=== PATIENT | female | born 1955 | race Caucasian/White ===

== ENCOUNTER 2024-05-28 07:31 | Inpatient (IN) ==
--- NOTE | 2024-04-30 14:00 | PAT Medication Instructions ---
Medication Instructions Date of Service April 30, 2024 Home Medications calcium carbonate 390 mg PO QPM cholecalciferol (vitamin D3) 125 mcg (5,000 unit) tablet 5,000 unit PO QPM duloxetine 60 mg capsule,delayed release 60 mg PO QPM metoprolol succinate 50 mg tablet,extended release 24 hr 50 mg PO QPM raloxifene 60 mg tablet (Evista) 60 mg PO QPM duloxetine 30 mg capsule,delayed release 30 mg PO QPM loratadine 10 mg tablet (Claritin) 10 mg PO DAILY PRN seasonal allergies levothyroxine 88 mcg tablet 88 mcg PO HS nitrofurantoin macrocrystal 100 mg capsule 100 mg PO BID UTI Continue as directed nitrofurantoin macrocrystal 100 mg capsule 100 mg PO BID UTI ASK your prescriber and surgeon raloxifene 60 mg tablet (Evista) 60 mg PO QPM DO NOT take the morning of surgery loratadine 10 mg tablet (Claritin) 10 mg PO DAILY PRN seasonal allergies Take evening before surgery calcium carbonate 390 mg PO QPM cholecalciferol (vitamin D3) 125 mcg (5,000 unit) tablet 5,000 unit PO QPM duloxetine 60 mg capsule,delayed release 60 mg PO QPM metoprolol succinate 50 mg tablet,extended release 24 hr 50 mg PO QPM duloxetine 30 mg capsule,delayed release 30 mg PO QPM loratadine 10 mg tablet (Claritin) 10 mg PO DAILY PRN seasonal allergies (if needed) levothyroxine 88 mcg tablet 88 mcg PO HS MORNING OF SURGERY: NOTHING TO EAT OR DRINK AFTER MIDNIGHT Other Notes If you have any questions please call us at [phone] or [phone] or [phone] or [phone]
--- NOTE | 2024-05-06 10:27 | Anesthesiology Consultation ---
Date of Service May 06, 2024 Assessment & Plan (1) Encounter for pre-operative examination: - Infectious disease screening: Per assessment on 05/06/24- No known recent infectious disease contacts or current infectious disease symptoms. - Patient acceptable risk for surgery pending surgeon-ordered PCP preop evaluation ([facility], appt 05/20). Chart Review Chart Review: Patient seen in Pre Admission Testing Teaching & Discussion Pre-Anesthesia Teaching/Discussion Notes: Instructed NPO after midnight before surgery,except medications with 15 cc of water. Medication instructions provided according to the PAT guidelines. History Surgery Operation Date: 05/28/24 09:35 Proposed Procedures p L5-S1 Decompression and Fusion, Spinal Cord Monitoring - Dinh Francois, Height/Weight Height: 5 ft Weight: 69.4 kg Allergies Allergy/AdvReac Type Severity Reaction Status Date / Time Sulfa (Sulfonamide Allergy Unknown Rash Verified 04/18/24 14:12 Antibiotics) Medications Home Medications Medication Instructions Recorded Confirmed Last Taken calcium carbonate 390 mg PO QPM 07/29/20 04/18/24 Unknown cholecalciferol (vitamin D3) 125 5,000 unit PO QPM 07/29/20 04/18/24 Unknown mcg (5,000 unit) tablet duloxetine 60 mg capsule,delayed 60 mg PO QPM 07/29/20 04/18/24 Unknown release metoprolol succinate 50 mg 50 mg PO QPM 07/29/20 04/18/24 Unknown tablet,extended release 24 hr raloxifene 60 mg tablet (Evista) 60 mg PO QPM 07/29/20 04/18/24 Unknown duloxetine 30 mg capsule,delayed 30 mg PO QPM 04/12/24 04/18/24 Unknown release loratadine 10 mg tablet (Claritin) 10 mg PO DAILY PRN seasonal 04/12/24 04/18/24 Unknown allergies levothyroxine 88 mcg tablet 88 mcg PO HS 04/18/24 04/18/24 Unknown nitrofurantoin macrocrystal 100 mg 100 mg PO BID UTI 04/18/24 04/18/24 Unknown capsule Past Medical History Medical History (Updated 05/06/24 @ 21:25 by Felicity Matute) Chronic pain Tailbone chronic pain - reason for duloxetine Glomerulonephritis Familial glomerulonephritis - has seen a tubing tester in the remote past No current issues Rob's thyroiditis Hx of recurrent urinary tract infection Hypertension Per records, patient denies Impingement of right shoulder Lumbar radiculopathy chronic - bilateral legs Lumbar spinal stenosis Osteopenia Tachycardia Reason for metoprolol Exercise / Class Metabolic Activity II 4-5 Yardwork/Stairs/Walk up hill Past Family History Family History Mother Osteoporosis Hypothyroidism Breast cancer COPD (chronic obstructive pulmonary disease) Hypertension Sister Diabetes Breast cancer Grandmother (Paternal) Colorectal cancer Brother Prostate cancer Myocardial infarction Father Dementia Other No family history of adverse response to anesthesia Denies family history of Ovarian cancer Past Surgical History Surgical History History of bilateral breast reduction surgery History of carpal tunnel surgery R/L (2017) History of section x2 History of colonoscopy History of fusion of cervical spine C5-C7 fusion - "Full ROM" History of tubal ligation 1983 PONV (postoperative nausea and vomiting) Previous back surgery Tail bone removal S/P lumbar microdiscectomy 2017 Status post dilation and curettage Past Anesthesia History No Hx of Anesthesia Complications and No Family Hx of Anesthesia Complications History of PONV History of PONV and Hx of Motion Sickness (" on rides") Social History Smoking Status: Never smoker Do You Dip or Chew Tobacco: No Hx Alcohol Use: No Hx Substance Use: No substance use type: does not use Review of Systems Patient denies chest pain, shortness of breath, dyspnea on exertion, fever, chills, cough, wheezing, palpitations. Physical Exam Vital Signs BP 161/92 P 91 TEMP 97.9 SP02 95%RA RESP 16 Physical Full cervical extension range of motion. Full TMJ range of motion. TMD 3 finger breaths Mallampati Score III Dentition: intact, + several crowns Lungs: clear throughout to auscultation Cardiac: regular rate and rhythm, no murmurs noted Spine: normal Carotid arteries: negative bruit Extremities: no LE edema Lab Results Anesthesia Preop Results Results Anesthesia Widget: WBC 5.16 K/ul (4.8-10.8) 05/06/24 Hgb 13.5 g/dl (12.0-16.0) 05/06/24 Hct 41.9 % (37.0-47.0) 05/06/24 Plt 265 K/uL (130-400) 05/06/24 Na 142 mmol/L (136-145) 05/06/24 K 4.1 mmol/L (3.5-5.1) 05/06/24 Cl 109 mmol/L (98-107) H 05/06/24 CO2 28 mmol/L (21-32) 05/06/24 BUN 16 mg/dl (6-23) 05/06/24 Creat 0.89 mg/dl (0.6-1.2) 05/06/24 Glucose Level 93 mg/dl (70-99(Fasting)) 05/06/24 PT 10.0 Seconds (9.0-12.0) 05/06/24 PTT 25 Seconds (21-31) 05/06/24 INR 0.9 (0.9-1.1) 05/06/24 TSH 8.692 uIu/ml (0.300-4.500) H 04/12/24 Free T4 0.88 ng/dl (0.61-1.60) 04/12/24 Blood Type O Positive 05/06/24 Antibody Screen NEGATIVE 05/06/24 Testing Laboratory Results UA (04/12/24): positive nitrite/blood/protein, negative leuk est Urine culture (04/12/24): probable skin tayla *Patient states she was treated with abx for several days based on UA findings but told by PCP to discontinue after urine culture resulted and was not indicative of infection. Patient currently asymptomatic as of PAT visit 05/06/24* Electrocardiogram Date: 05/06/24 NSR with sinus arrhythmia at 79bpm. PRWP, consider anterior [place] vs lead placement vs LVH. No significant change compared to 12/01/2012 per fibre technologist comparison. Chest X-Ray Date: 05/06/24 FINDINGS: Lung volumes are normal. Lungs are clear. There is no pneumothorax or pleural effusion. Cardiac size is normal. Mediastinal contours are normal. There is no evidence for pulmonary edema. Postoperative findings within the spine are incidentally noted. IMPRESSION: No acute cardiopulmonary findings.
[~2024-05-28 07:31] MED LIST: CeleBREX 200 MG CAP PO SCH
[2024-05-28] MEDS: VANCOMYCIN HCL 1,000 MG/270 ML BAG IV SCH (08:22)
[2024-05-28] MEDS: LR 15ML/HR IV SCH (08:22)
[2024-05-28] MEDS: LR 60ML/HR IV SCH (08:22)
[2024-05-28] MEDS: ACETAMINOPHEN 500 MG TAB PO SCH (08:23)
[2024-05-28] MEDS: GABAPENTIN 300 MG CAP PO SCH (08:23)
[2024-05-28] MEDS ORDERED: ONDANSETRON INJ 2 MG/ML 2 ML VIAL ONE (08:25)
[2024-05-28] MEDS ORDERED: DEXAMETHASONE SOD INJ 4 MG/ML VIAL ONE (08:25)
[2024-05-28] MEDS ORDERED: PROPOFOL IV EMULSION 10 MG/ML 20 ML VIAL IV ONE (08:25)
[2024-05-28] MEDS ORDERED: LIDOCAINE 2% 2 ML VIAL/AMP(20MG/ML) INFIL ONE (08:25)
[2024-05-28] MEDS ORDERED: MIDAZOLAM HCL 1 MG/ML 2ML VIAL ONE (08:25)
[2024-05-28] MEDS ORDERED: fentaNYL citrate PF 100 MCG/2 ML VIAL ONE (08:25)
[2024-05-28] MEDS ORDERED: ROCURONIUM BROMIDE 10 MG/ML 5 ML VIAL IV ONE ×2 (08:25→10:01)
--- NOTE | 2024-05-28 09:07 | History & Physical Bridge Note ---
Date of Service May 28, 2024 History & Physical Bridge Note I have examined the patient, reviewed the History & Physical and in the interval since the performance of the History & Physical I have noted the following changes of clinical significance: no changes noted
--- NOTE | 2024-05-28 09:08 | History & Physical Report ---
Date of Service May 28, 2024 Assessment & Plan (1) Lumbosacral spondylosis with radiculopathy: History of Present Illness Chief Complaint: Back and bilateral leg pain Primary Care Provider: Norm Whitlock DO This is a 68-year-old female who presents chronic persistent back and bilateral leg pain after failing course of nonoperative care is here for surgical in [facility]. Allergies Allergy/AdvReac Type Severity Reaction Status Date / Time Sulfa (Sulfonamide Allergy Unknown Rash Verified 05/28/24 08:15 Antibiotics) Home Medications Medication Instructions Recorded Confirmed Type calcium carbonate 390 mg PO QPM 07/29/20 05/28/24 History cholecalciferol (vitamin D3) 125 5,000 unit PO QPM 07/29/20 05/28/24 History mcg (5,000 unit) tablet duloxetine 60 mg capsule,delayed 60 mg PO QPM 07/29/20 05/28/24 History release raloxifene 60 mg tablet (Evista) 60 mg PO QPM 07/29/20 05/28/24 History duloxetine 30 mg capsule,delayed 30 mg PO QPM 04/12/24 05/28/24 History release loratadine 10 mg tablet (Claritin) 10 mg PO DAILY PRN seasonal 04/12/24 05/28/24 History allergies levothyroxine 88 mcg tablet 88 mcg PO HS 04/18/24 05/28/24 History metoprolol succinate 50 mg 50 mg PO QPM #90 tabs 05/27/24 05/28/24 Rx tablet,extended release 24 hr albuterol sulfate 90 mcg/actuation 2 puff inhalation DIRECTED PRN 05/28/24 05/28/24 History aerosol inhaler (Ventolin HFA) Wheezing Past Med/Surg History Problem List (Updated 05/28/24 @ 09:07 by Dinh Francois DO) Lumbosacral spondylosis with radiculopathy Encounter for pre-operative examination Hematuria due to chronic cystitis Osteopenia HTN (hypertension) Lumbar radiculopathy Lumbar spinal stenosis Anxiety Hypothyroidism Medical History (Updated 05/28/24 @ 09:07 by Dinh Francois DO) Hx of recurrent urinary tract infection Glomerulonephritis Familial glomerulonephritis - has seen a car shagger in the remote past No current issues Chronic pain Tailbone chronic pain - reason for duloxetine Hypertension Per records, patient denies Tachycardia Reason for metoprolol Osteopenia Lumbar radiculopathy chronic - bilateral legs Lumbar spinal stenosis Impingement of right shoulder Rob's thyroiditis Surgical History PONV (postoperative nausea and vomiting) History of colonoscopy Previous back surgery S/P lumbar microdiscectomy History of carpal tunnel surgery History of fusion of cervical spine History of bilateral breast reduction surgery History of tubal ligation Status post dilation and curettage History of section Family History Mother Osteoporosis Hypothyroidism Breast cancer COPD (chronic obstructive pulmonary disease) Hypertension Sister Diabetes Breast cancer Grandmother (Paternal) Colorectal cancer Brother Prostate cancer Myocardial infarction Father Dementia Other No family history of adverse response to anesthesia Denies family history of Ovarian cancer Social History Smoking Status: Never smoker Second Hand Exposure: Yes (as a child); Do You Dip or Chew Tobacco: No; Tobacco Cessation Education Requested by Patient: No Hx Alcohol Use: No Hx Substance Use: No Preferred Language: Icelandic Communication Ability: Effective Commercial Lending Assistant Required: No Beliefs That Will Affect Care: None marital status: Current Living Situation: Spouse current occupational status: retired How many Children do You have: 2 Other Information That Helps Us Care for You: No Feels Safe at Home: Yes Safety Concerns: Feels Safe At This Time Childhood Exposure to Second-Hand Smoke: Yes Diet: regular caffeine: No Dental Care, Regularly: Yes Physical Activity Frequency: Does not Exercise Seatbelt Use: always Sunscreen Use: Yes Assistive Devices: None Physical Exam Physical Exam: Patient is alert and oriented Heart regular rhythm Lungs clear Results & Data Results & Data Vital Signs (Past 12 Hours) Vital Signs Temp Pulse Resp BP Pulse Ox O2 Del Method 05/28/24 08:10 36.9 C 96 H 20 159/99 H 97 Room Air
[2024-05-28] MEDS ORDERED: ePHEDrine sulfate 50 MG/ML AMP IV PRN (09:09)
[2024-05-28] MEDS ORDERED: ONDANSETRON INJ 2 MG/ML 2 ML VIAL IV PRN ×2 (09:09→13:30)
[2024-05-28] MEDS ORDERED: ATROPINE SULFATE 0.1 MG/ML 10ML SYR IV PRN (09:09)
[2024-05-28] MEDS ORDERED: DROPERIDOL 5 MG/2 ML VIAL IV PRN (09:10)
--- NOTE | 2024-05-28 09:33 | History & Physical Bridge Note ---
Date of Service May 28, 2024 History & Physical Bridge Note I have examined the patient, reviewed the History & Physical and in the interval since the performance of the History & Physical I have noted the following changes of clinical significance: no changes noted Lumbar decompression fusion L5-S1
[2024-05-28] MEDS ORDERED: PHENYLEPHRINE 100MCG/ML 5ML SYR ONE ×2 (10:01→10:41)
[2024-05-28] MEDS ORDERED: ePHEDrine sulfate 50 MG/5 ML SYR ONE (10:06)
[2024-05-28] MEDS ORDERED: VASOPRESSIN 20 UNIT/ML VIAL ONE (10:10)
[2024-05-28] MEDS ORDERED: SODIUM CHLORIDE 0.9% PF INJ 10 ML VIAL ONE (10:11)
[2024-05-28] MEDS: BUPIVACAINE/EPINEPHRINE 0.25% 1:200,000 30 ML VIAL ONE (10:13)
[2024-05-28] MEDS: ceFAZolin 330 MG/ML 1 GM VIAL ONE (10:14)
[2024-05-28] MEDS ORDERED: PHENYLEPHRINE HCL 10 MG/ML VIAL ONE (10:44)
[2024-05-28] MEDS ORDERED: SUGAMMADEX SODIUM 200 MG/2 ML VIAL IV ONE ×2 (11:05→11:11)
--- NOTE | 2024-05-28 11:05 | Operative Report ---
Post Operative Report Pre & Post Diagnosis Operation Date: 05/28/24 09:35 Pre-Op Diagnosis: Lumbosacral Spondylosis with Radiculopathy Post-Op Diagnosis: Lumbosacral Spondylosis with Radiculopathy I identified the patient and participated in the time-out.: Yes Procedure Operation Date: 05/28/24 09:35 Actual Procedures #1 revision decompression with bilateral medial facetectomies and foraminotomies L5-S1. #2 posterior spinal fusion L5-S1. #3 placement posterior instrumentation L5-S1. #4 interbody fusion L5-S1. #5 placement of Spira 11 x 26 mm x 2 at L5-S1. #6 placement locally harvested morselized autograft in the posterior gutters. #7 placement infuse collagen sponge, with Koros in the posterior lateral gutters and os design interbody space. #8 application of versa wrap over the exposed dura. Surgeon Dinh Francois, Child Care Cook Nelly Guevara Estimated Blood Loss 150 Findings Consistent with Post-Op Diagnosis Specimens None Indications This is a 68-year-old female who presents above-mentioned diagnosis of failed course of nonoperative care is here for surgical invention. Description of Procedure Patient was met with identified informed consent obtained. Patient was then taken to the operative suite underwent intubation placed in a prone position the Alvaro table atop the Valentín frame. All bony promises well-padded eyes inspected to ensure no external pressure placed upon them. This point lumbar spine was prepped and draped in normal sterile fashion. Sharp dissection with the assistance of Bovie cautery was formed down to and exposing the remaining lamina and transverse processes of L5 and the sacral ala bilaterally. From caudal to cephalad fashion revision complete laminectomy of L5 was performed including bilateral medial facetectomies and foraminotomies addressing severe subarticular and foraminal stenosis. Pedicle screws then placed in L5 and S1 levels bilaterally with assistance of fluoroscopy and appropriately sized vinay placed. By way of transforaminal approach on the right a discectomy of L5-S1 was performed endplates corrected to subcortical bleeding bone and a 11 x 26 mm spiral cage filled with os design bone graft tapped into position. Then proceeded to the left transforaminal region L5-S1. Again discectomy performed. Endplates guided to subcortical bleeding bone. A second 11 x 26 mm spiral cage filled with os design bone graft apposition. The rods were then locked in a final position bilaterally. The transverse processes of L5 and the sacral ala burred to subcortical bleeding bone. Infuse collagen sponge, with Koros and local autograft placed in the posterior lateral gutters. Versa wrap placed over the exposed dura. 15 round HANNAH drain inserted. Incision was then closed with 1 Vicryl fascia 2-0 Vicryl subcutaneously and 4 Monocryl for final skin closure. Steri-Strips sterile dressing placed. Patient waken taken to PACU in stable condition. Please note spinal cord monitoring was utilized at the procedure no changes noted. Nelly Guevara was present at the entire procedure and all the patient positioning complex portion of the surgery and final skin closure. I attest to the content of the Intraoperative Record and any orders documented therein. Any exceptions are noted below.
[2024-05-28] MEDS: FLOSEAL HEMOSTATIC MATRIX 10ML TOP ONE (11:07)
[2024-05-28] MEDS: fentaNYL citrate PF 100 MCG/2 ML VIAL IV PRN (11:30)
--- NOTE | 2024-05-28 11:48 | Fluoroscopy Report ---
FL lumbar spine 2-3V CLINICAL HISTORY: L5-S1 DECOMPRESSION AND FUSION WITH INTERBODY COMPARISON STUDY: Lumbar spine MRI January 19, 2024. FLUOROSCOPY TIME: 17 seconds. Ka,r: 12.67 mGy FLUOROSCOPIC IMAGES: 2 FINDINGS: Fluoroscopy was provided during L5-S1 decompression and fusion with discectomy. Hardware is intact. There are bilateral pedicle screws at the L5-S1 levels. IMPRESSION: Fluoroscopy provided during L5-S1 decompression and fusion. ACT 112: Negative or not required by law. Electronically signed by: Eldon Muse M.D. 05/28/2024 11:47 AM
[2024-05-28] MEDS: HYDROmorphone INJ 1 MG/ML SYRINGE IV PRN (12:18)
[2024-05-28] MEDS ORDERED: ALUMINUM/MAGNESIUM SUSP 30 ML UDC PO PRN (13:30)
[2024-05-28] MEDS ORDERED: FAMOTIDINE 20 MG TAB PO PRN (13:30)
[2024-05-28] MEDS ORDERED: PROMETHAZINE 12.5 MG/50.5 ML BAG IV PRN (13:30)
[2024-05-28] MEDS ORDERED: bisacodyL 10 MG SUPP PR PRN (13:30)
[2024-05-28] MEDS ORDERED: ALBUTEROL HFA 8 GM INHALER INH PRN (13:30)
[2024-05-28] MEDS ORDERED: DO NOT ADMINISTER FLU VACCINE PRN (13:30)
[2024-05-28] MEDS ORDERED: LORATADINE 10 MG TAB PO PRN (13:30)
[2024-05-28] MEDS ORDERED: LORazepam 2 MG/1 ML VIAL IV PRN (13:30)
[2024-05-28] MEDS ORDERED: DO NOT ADMINISTER PNEUMOCOCCAL VACCINE PRN (13:30)
[2024-05-28] MEDS ORDERED: NALOXONE HCL 0.4 MG/1 ML VIAL/CARP IV PRN (13:30)
[2024-05-28] MEDS ORDERED: MAGNESIUM HYDROXIDE SUSP 30 ML UDC PO PRN (13:30)
[2024-05-28] MEDS ORDERED: diphenhydrAMINE Capsule 25 MG CAP PO PRN (13:30)
[2024-05-28] MEDS ORDERED: LORazepam 0.5 MG TAB PO PRN (13:30)
[2024-05-28] MEDS ORDERED: SOD PHOSPHATE/SOD BIPHOSPHATE ENEMA 132 ML BTL PR PRN (13:30)
--- NOTE | 2024-05-28 13:54 | Anesthesiology Progress Note ---
Date of Service May 28, 2024 Anesthesia Post Procedure Vital Signs Vital Signs: Temp Pulse Pulse Resp BP Pulse Ox O2 Del Method 05/28/24 13:30 Nasal Cannula 05/28/24 13:30 36.5 C 108 H 18 101/66 98 Nasal Cannula 05/28/24 13:10 103 H 14 105/61 93 Nasal Cannula 05/28/24 13:00 101 H 14 95/56 L 93 Nasal Cannula 05/28/24 12:50 36.6 C 102 H 12 102/59 L 93 Nasal Cannula 05/28/24 12:40 100 H 12 116/63 96 Nasal Cannula 05/28/24 12:30 97 H 14 88/51 L 91 Nasal Cannula 05/28/24 12:20 103 H 20 91/54 L 94 Nasal Cannula 05/28/24 12:10 96 H 17 85/43 L 94 Nasal Cannula 05/28/24 12:00 97 H 15 102/57 L 92 Nasal Cannula 05/28/24 11:50 87 20 122/66 94 Oxymask 05/28/24 11:40 88 20 113/74 94 Oxymask 05/28/24 11:30 85 16 110/70 100 Oxymask 05/28/24 11:20 36.1 C L 85 16 122/72 98 Oxymask 05/28/24 08:10 36.9 C 96 H 20 159/99 H 97 Room Air O2 Flow Rate 05/28/24 13:30 2 05/28/24 13:30 2 05/28/24 13:10 2 05/28/24 13:00 2 05/28/24 12:50 2 05/28/24 12:40 2 05/28/24 12:30 2 05/28/24 12:20 2 05/28/24 12:10 2 05/28/24 12:00 2 05/28/24 11:50 2 05/28/24 11:40 4 05/28/24 11:30 4 05/28/24 11:20 6 05/28/24 08:10 Pain Intensity Back: Pain Intensity: 7 Transfer of Care Handoff Completed per policy Notes Mental Status: alert / awake / arousable and participated in evaluation Patient Amnestic to Procedure: Yes Nausea / Vomiting: adequately controlled Pain: adequately controlled Airway Patency, RR, SpO2: stable & adequate BP & HR: stable & adequate Hydration State: stable & adequate Anesthetic Complications: no major complications apparent and Pt Satisfied with anesthetic care
--- NOTE | 2024-05-28 14:30 | Hospitalist Consultation ---
Date of Consultation May 28, 2024 Assessment & Plan (1) Lumbosacral spondylosis with radiculopathy: s/p #1 revision decompression with bilateral medial facetectomies and foraminotomies L5-S1. #2 posterior spinal fusion L5-S1. #3 placement posterior instrumentation L5-S1. #4 interbody fusion L5-S1. #5 placement of Spira 11 x 26 mm x 2 at L5-S1. #6 placement locally harvested morselized autograft in the posterior gutters. #7 placement infuse collagen sponge, with Koros in the posterior lateral gutters and os design interbody space. #8 application of versa wrap over the exposed dura with Dr Francois on 05/28 EBL 150cc Post op pain management, bowel regimen, PT/OT/DVT proph per primary service Labs in AM (2) Hypothyroidism: Hx Rob's. Per PCP note, TSH slightly high but normal T4 and remains on levothyroxine 88mcg dialy rec repeat TFT in 4 wks following surgery/adjustment pending levels w/ PCP (3) Chronic pain: continues on Cymbalta 90mg dialy pain management for above per primary service (4) HTN (hypertension): hx HTN/tachycardia Continue metoprolol 50mg daily w/ hold parameters Plan Dispo: continued inpatient stay Thank you for allowing hospitalist service to participate in the care of Ms Eric. Hospitalist service will follow in AM. Please call with any questions/concerns. Supervising Physician Co-Signing Physician Notes 68-year-old female with past medical history of Rob's thyroiditis, hypertension, recurrent UTIs who presented for scheduled decompression/fusion L5-S1 on complicated with blood loss estimated 150 cc. Some postop hypoxia which has subsequently resolved by time of provider assessment suspect atelectatic. Mild tachycardia, has not yet received her scheduled beta-karine. Will continue this to prevent beta-karine withdrawal. Agree with assessment management as above History of Present Illness Reason for Consultation: medical management Requesting Physician: Dr Francois Attending Physician: Dinh Francois, History of Present Illness 68yo female with PMHx significant for Hashimotos, HTN/tachycardia, recurrent UTIs presented for decompression/fusion L5-S1 with Dr Francois. EBL 150cc Prior back surgery by Dr Byrne in the past in 2017. Patient evaluated in room 305, at bedside. Pain tolerable, would like something if available, nursing notified to provide. On 2L post-op but no SOB/CP reported. No nausea/vomiting, tolerating PO intake. HANNAH just emptied. No baby aspirin at baseline, on cymbalta for chronic pain not anxiety/depression. Discussed repeat TFT w/ PCP in next month. Questions/concerns addressed at this time Allergies Allergy/AdvReac Type Severity Reaction Status Date / Time Sulfa (Sulfonamide Allergy Unknown Rash Verified 05/28/24 08:15 Antibiotics) Home Medications Medication Instructions Recorded Confirmed Type calcium carbonate 390 mg PO QPM 07/29/20 05/28/24 History cholecalciferol (vitamin D3) 125 5,000 unit PO QPM 07/29/20 05/28/24 History mcg (5,000 unit) tablet duloxetine 60 mg capsule,delayed 60 mg PO QPM 07/29/20 05/28/24 History release raloxifene 60 mg tablet (Evista) 60 mg PO QPM 07/29/20 05/28/24 History duloxetine 30 mg capsule,delayed 30 mg PO QPM 04/12/24 05/28/24 History release loratadine 10 mg tablet (Claritin) 10 mg PO DAILY PRN seasonal 04/12/24 05/28/24 History allergies levothyroxine 88 mcg tablet 88 mcg PO HS 04/18/24 05/28/24 History metoprolol succinate 50 mg 50 mg PO QPM #90 tabs 05/27/24 05/28/24 Rx tablet,extended release 24 hr albuterol sulfate 90 mcg/actuation 2 puff inhalation DIRECTED PRN 05/28/24 05/28/24 History aerosol inhaler (Ventolin HFA) Wheezing oxycodone 5 mg tablet 5 mg PO Q6H PRN pain #30 tabs 05/28/24 Rx tramadol 50 mg tablet 50 mg PO Q6H PRN pain, moderate 05/28/24 Rx #30 tabs Patient History Medical History Hx of recurrent urinary tract infection Glomerulonephritis Familial glomerulonephritis - 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 the remote past No current issues Chronic pain Tailbone chronic pain - reason for duloxetine Hypertension Per records, patient denies Tachycardia Reason for metoprolol Osteopenia Lumbar radiculopathy chronic - bilateral legs Lumbar spinal stenosis Impingement of right shoulder Rob's thyroiditis Surgical History PONV (postoperative nausea and vomiting) History of colonoscopy Previous back surgery Tail bone removal S/P lumbar microdiscectomy 2016 History of carpal tunnel surgery R/L (2017) History of fusion of cervical spine C5-C7 fusion - "Full ROM" History of bilateral breast reduction surgery History of tubal ligation 1984 Status post dilation and curettage History of section x2 Family History Mother Osteoporosis Hypothyroidism Breast cancer COPD (chronic obstructive pulmonary disease) Hypertension Sister Diabetes Breast cancer Grandmother (Paternal) Colorectal cancer Brother Prostate cancer Myocardial infarction Father Dementia Other No family history of adverse response to anesthesia Denies family history of Ovarian cancer Social History Smoking Status: Never smoker Second Hand Exposure: Yes (as a child); Do You Dip or Chew Tobacco: No; Tobacco Cessation Education Requested by Patient: No Hx Alcohol Use: No Hx Substance Use: No Preferred Language: Kiswahili Communication Ability: Effective Smoking Tobacco Packing Machine Hand Required: No Beliefs That Will Affect Care: None marital status: Current Living Situation: Spouse current occupational status: retired How many Children do You have: 2 Other Information That Helps Us Care for You: No Feels Safe at Home: Yes Safety Concerns: Feels Safe At This Time Childhood Exposure to Second-Hand Smoke: Yes Diet: regular caffeine: No Dental Care, Regularly: Yes Physical Activity Frequency: Does not Exercise Seatbelt Use: always Sunscreen Use: Yes Assistive Devices: None Review of Systems Review of Systems: All systems reviewed & are unremarkable except as noted in HPI & below Physical Exam Physical Exam: General: 68yo female laying in bed, at bedside, NAD HEENT head atraumatic, normocephalic, mmm, trachea midline Resp: even/unlabored, no wheezing/rales, on 2L post op, no tachypnea/cough CV: RRR, no significant m/r/g, no pitting edema GI: +BS, soft/NT MSK/Neuro: dressing c/d/i, appropriately tender, HANNAH just emptied/bloody drainage present, NVI, dorsiflexion/plantar flexion intact Psych: AOx3, cooperative with exam Results & Data Results & Data Vital Signs (Past 12 Hours) Vital Signs Temp Pulse Pulse Resp BP Pulse Ox O2 Del Method 05/28/24 14:02 36.6 C 103 H 16 91/58 L 92 Nasal Cannula 05/28/24 13:30 Nasal Cannula 05/28/24 13:30 36.5 C 108 H 18 101/66 98 Nasal Cannula 05/28/24 13:10 103 H 14 105/61 93 Nasal Cannula 05/28/24 13:00 101 H 14 95/56 L 93 Nasal Cannula 05/28/24 12:50 36.6 C 102 H 12 102/59 L 93 Nasal Cannula 05/28/24 12:40 100 H 12 116/63 96 Nasal Cannula 05/28/24 12:30 97 H 14 88/51 L 91 Nasal Cannula 05/28/24 12:20 103 H 20 91/54 L 94 Nasal Cannula 05/28/24 12:10 96 H 17 85/43 L 94 Nasal Cannula 05/28/24 12:00 97 H 15 102/57 L 92 Nasal Cannula 05/28/24 11:50 87 20 122/66 94 Oxymask 05/28/24 11:40 88 20 113/74 94 Oxymask 05/28/24 11:30 85 16 110/70 100 Oxymask 05/28/24 11:20 36.1 C L 85 16 122/72 98 Oxymask 05/28/24 08:10 36.9 C 96 H 20 159/99 H 97 Room Air O2 Flow Rate 05/28/24 14:02 2 05/28/24 13:30 2 05/28/24 13:30 2 05/28/24 13:10 2 05/28/24 13:00 2 05/28/24 12:50 2 05/28/24 12:40 2 05/28/24 12:30 2 05/28/24 12:20 2 05/28/24 12:10 2 05/28/24 12:00 2 05/28/24 11:50 2 05/28/24 11:40 4 05/28/24 11:30 4 05/28/24 11:20 6 05/28/24 08:10 Diagnostic Findings Lumbar Spine X-Ray 05/28/24 09:35 FL lumbar spine 2-3V CLINICAL HISTORY: L5-S1 DECOMPRESSION AND FUSION WITH INTERBODY COMPARISON STUDY: Lumbar spine MRI January 19, 2024. FLUOROSCOPY TIME: 17 seconds. Ka,r: 12.67 mGy FLUOROSCOPIC IMAGES: 2 FINDINGS: Fluoroscopy was provided during L5-S1 decompression and fusion with discectomy. Hardware is intact. There are bilateral pedicle screws at the L5-S1 levels. IMPRESSION: Fluoroscopy provided during L5-S1 decompression and fusion. ACT 112: Negative or not required by law. Electronically signed by: Eldon Muse M.D. 05/28/2024 11:47 AM PG Care Time/CCT Total # of Minutes Spent Total Time Spent with Patient: Total time spent is greater than 50% in coordination of care (as documented) at patient's floor/unit and/or counseling patient: Coding Level of Care Code 65674 IN/OBS CONSULT LVL 3,45M Diagnoses Lumbosacral spondylosis with radiculopathy M47.27 Hypothyroidism E03.9 Chronic pain G89.29 HTN (hypertension) I10
[2024-05-28] MEDS: HYDROmorphone INJ 0.5 MG/0.5 ML SYR IV PRN (15:03)
[2024-05-28] MEDS: ceFAZolin 2000MG 2,000 MG/15 ML SYR IV SCH (17:16)
[2024-05-28] MEDS: hydrOXYzine HCl 25 MG TAB PO PRN (20:50)
[2024-05-28] MEDS: RALOXIFENE HCL 60 MG TAB PO SCH (20:50)
[2024-05-28] MEDS: CALCIUM CARBONATE 1250MG TAB PO SCH (20:50)
[2024-05-28] MEDS: DOCUSATE SODIUM/SENNA 50/8.6MG TAB PO SCH (20:50)
[2024-05-28] MEDS: CHOLECALCIFEROL 125 MCG (5,000 UNITS) TAB PO SCH (20:50)
[2024-05-28] MEDS: LEVOTHYROXINE SODIUM 88 MCG TABLET PO SCH (20:50)
[2024-05-28] MEDS: LACTATED RINGER'S 500 ML IV ONE (21:10)
[2024-05-28] MEDS: DULoxetine HCL 30 MG CAP PO SCH (21:35)
[2024-05-28] MEDS: DULoxetine HCL 60 MG CAP PO SCH (21:35)
[2024-05-28] MEDS: METOPROLOL SUCC 50MG EXT REL TAB PO SCH (21:36)
[2024-05-29] MEDS: POLYETHYLENE (MIRALAX) 17 GM PACK PO SCH (06:13)
[2024-05-29] MEDS: ONDANSETRON 4 MG OD TAB PO PRN (06:22)
[2024-05-29] MEDS: METOCLOPRAMIDE HCL INJ 5 MG/ML 2 ML VIAL IV PRN (06:28)
[2024-05-29] MEDS: ACETAMINOPHEN 1,000 MG/100 ML VIAL IV PRN (06:30)
[2024-05-29 06:35] LABS: Basophils # (auto) 0.01 K/uL (0.00-0.20); Basophils % (auto) 0.1 %; Eosinophils # (auto) 0.01 K/uL (0.00-0.50); Eosinophils % (auto) 0.1 %; Hematocrit (blood only) 32.1 % (37.0-47.0); Hemoglobin 10.4 g/dl (12.0-16.0); Immature Granulocytes # (auto) 0.05 K/uL (0.01-0.20); Immature Granulocytes % (auto) 0.5 %; Lymphocytes # (auto) 1.31 K/uL (1.20-3.40); Lymphocytes % (auto) 12.5 %; Mean Corpuscular Hemoglobin 30.6 pg (25.0-34.0); Mean Corpuscular Hgb Conc 32.4 g/dL (32.0-36.0); Mean Corpuscular Volume 94.4 fL (80.0-100.0); Mean Platelet Volume 9.8 fL (9.4-12.4); Monocytes # (auto) 0.62 K/uL (0.11-0.59); Monocytes % (auto) 5.9 %; Neutrophils % (auto) 80.9 %; Platelet Count 221 K/uL (130-400); RDW Coefficient of Variation 13.2 % (11.5-14.5); RDW Standard Deviation 45.4 fL (36.4-46.3)
[2024-05-29 07:00] LABS: BUN Creatinine Ratio 16.9 (10-20); Calcium 9.1 mg/dl (8.6-10.3); Creatinine Clr Calc Pharmacy 57.8 ml/min; Magnesium 1.7 mg/dl (1.7-2.4); Potassium 4.4 mmol/L (3.5-5.1)
--- NOTE | 2024-05-29 07:37 | Hospitalist Progress Note ---
Date of Service May 29, 2024 Assessment & Plan (1) Lumbosacral spondylosis with radiculopathy: Plan: s/p #1 revision decompression with bilateral medial facetectomies and foraminotomies L5-S1. #2 posterior spinal fusion L5-S1. #3 placement posterior instrumentation L5-S1. #4 interbody fusion L5-S1. #5 placement of Spira 11 x 26 mm x 2 at L5-S1. #6 placement locally harvested morselized autograft in the posterior gutters. #7 placement infuse collagen sponge, with Koros in the posterior lateral gutters and os design interbody space. #8 application of versa wrap over the exposed dura with Dr Francois on 05/28. EBL 150cc 05/29 POD#1, had some nausea/vomiting overnight. Primary service ordered IVF/bedrest, possible CSF leak w/ clear HANNAH drainage but messaged reported prior issue/similar with anesthesia/rec scopolamine patch in future with anesthesia and ok to be OOB w/ bathroom privileges for now WBC wnl, afebrile Hgb13.5--> 10.4. EBL 150cc, HANNAH output 300cc. --suspect acute blood loss anemia from surgery/some aspect of dilution Pain management, bowel regimen per primary - +BS on exam, continues bowel regimen. No santana PT/OT/DVT proph per primary service (2) Hypothyroidism: Plan: Hx Rob's. Per PCP note, TSH slightly high but normal T4 Remains on levothyroxine 88mcg dialy rec repeat TFT in 4 wks following surgery/adjustment pending levels w/ PCP -- she reports she has order to have these repeated in 1 month from prior (3) Chronic pain: Plan: continues on Cymbalta 90mg dialy pain management for above per primary service (4) HTN (hypertension): Plan: hx HTN/tachycardia -- BP 130/78 Continue metoprolol 50mg daily w/ hold parameters Plan Dispo: continued inpatient stay, bedrest w/ bathroom privledges for today per primary service. Hopeful dc in AM/pending course. Thank you for allowing hospitalist service to participate in the care of Ms Eric. Hospitalist service will follow in AM. Please call with any questions/concerns. Admission and Anticipated Discharge Date Admission Date: May 28, 2024 Supervising Physician Co-Signing Physician Notes The patient was not seen by me. The chart was reviewed. Case discussed with ETIENNE Stoner. Agree with assessment and plan Subjective Eval this morning, doing well. Did have rough night with nausea/vomiting Discussed scopalamine patch in future given prior issues with anesthesia Titrated to room air this morning, pain controlled with ordered medications. Saw by Dr Francois this morning, HANNAH output decreased/removed this morning. Passing some gas, no BM. Not unusual for patient to take day or two to move bowels/continues on regimen. IVF ordered by primary service, PO hydration encouraged. Anticipating discharge tomorrow. No CP/SOB. Questions/concerns addressed at this time. Physical Exam 2 Physical Exam: General: 68yo female laying in bed, NAD, had a rough night/reported improved this morning HEENT head atraumatic, normocephalic, mmm, trachea midline Resp: even/unlabored, no wheezing/rales, on room air CV: RRR, no significant m/r/g, no pitting edema GI: +BS, soft, slight distension but NONTENDER, no guarding/rebound MSK/Neuro: dressing c/d/i, no shadowing, HANNAH removed this morning, equal dorsiflexion/plantar flexion, sensation intact, pulses present Psych: AOx3, cooperative with exam Results & Data Results & Data Vital Signs (Past 12 Hours) Vital Signs Temp Pulse Resp BP Pulse Ox O2 Del Method O2 Flow Rate 05/29/24 03:33 36.6 C 113 H 16 91/57 L 96 Nasal Cannula 2 05/28/24 23:21 36.8 C 102 H 18 115/71 91 Room Air 05/28/24 21:36 120 H 122/78 05/28/24 20:40 112 H 104/65 05/28/24 20:09 36.5 C 120 H 18 101/56 L 93 Room Air Laboratory Results 05/29/24 06:02 05/29/24 06:02 Mag 1.7 B12 593 Diagnostic Findings Lumbar Spine X-Ray 05/28/24 09:35 FL lumbar spine 2-3V CLINICAL HISTORY: L5-S1 DECOMPRESSION AND FUSION WITH INTERBODY COMPARISON STUDY: Lumbar spine MRI January 19, 2024. FLUOROSCOPY TIME: 17 seconds. mook Hung: 12.67 mGy FLUOROSCOPIC IMAGES: 2 FINDINGS: Fluoroscopy was provided during L5-S1 decompression and fusion with discectomy. Hardware is intact. There are bilateral pedicle screws at the L5-S1 levels. IMPRESSION: Fluoroscopy provided during L5-S1 decompression and fusion. ACT 112: Negative or not required by law. Electronically signed by: lEdon Muse M.D. 05/28/2024 11:47 AM PG Care Time/CCT Total # of Minutes Spent Total Time Spent with Patient: Total time spent is greater than 50% in coordination of care (as documented) at patient's floor/unit and/or counseling patient: Coding Level of Care Code 72686 SUB INP/OBS CARE 235MIN Diagnoses Lumbosacral spondylosis with radiculopathy M47.27 Hypothyroidism E03.9 Chronic pain G89.29 HTN (hypertension) I10
[2024-05-29] MEDS: dexAMETHasone 6 MG in SYRINGE 0 ML IV SCH (08:13)
--- NOTE | 2024-05-29 08:25 | Orthopedic Progress Note ---
Date of Service May 29, 2024 Assessment & Plan (1) Lumbosacral spondylosis with radiculopathy: Plan: At this time have DC'd her drain. I am concerned she has a CSF leak. The risks nothing noted intraoperatively. She is spontaneous in nature. Will start a maintenance IV and maintain bedrest today. Hopefully reinitiate activity tomorrow. Admission and Anticipated Discharge Date Admission Date: May 28, 2024 Subjective Patient is struggling with some back pain. She is noting headaches that began last evening. She was up and ambulating. She notes her leg pain is resolved. Physical Exam Physical Exam: On exam she is currently in bed. HANNAH drain is significant amounts of serous fluid. She is neurologically intact. Results & Data Vital Signs (Past 12 Hours) Vital Signs Temp Pulse Pulse Resp BP Pulse Ox O2 Del Method 05/29/24 07:41 36.7 C 86 15 130/78 94 Room Air 05/29/24 03:33 36.6 C 113 H 16 91/57 L 96 Nasal Cannula 05/28/24 23:21 36.8 C 102 H 18 115/71 91 Room Air 05/28/24 21:36 120 H 122/78 05/28/24 20:40 112 H 104/65 O2 Flow Rate 05/29/24 07:41 05/29/24 03:33 2 05/28/24 23:21 05/28/24 21:36 05/28/24 20:40
[2024-05-29] MEDS: MAGNESIUM SULFATE / D5W 1 GM/100 ML BAG IV ONE (08:45)
[2024-05-29] MEDS: SODIUM CHLORIDE 0.9% 1,000 ML IV SCH (08:47)
[2024-05-29] MEDS: FAMOTIDINE 20MG IV PUSH 20 MG/5 ML SYR IV SCH (11:18)
[2024-05-29] MEDS: oxyCODONE HCL IR 5 MG TAB (IMMEDIATE RELEASE) PO PRN (14:10)
[2024-05-29] MEDS: ACETAMINOPHEN 500 MG TAB PO PRN (19:43)
[2024-05-30 06:42] LABS: Hematocrit (blood only) 32.8 % (37.0-47.0); Hemoglobin 10.4 g/dl (12.0-16.0); Mean Corpuscular Hemoglobin 30.9 pg (25.0-34.0); Mean Corpuscular Hgb Conc 31.7 g/dL (32.0-36.0); Mean Corpuscular Volume 97.3 fL (80.0-100.0); Mean Platelet Volume 9.9 fL (9.4-12.4); Platelet Count 245 K/uL (130-400); RDW Coefficient of Variation 13.6 % (11.5-14.5); Red Blood Count 3.37 M/uL (4.20-5.40); White Blood Count 12.91 K/ul (4.8-10.8)
[2024-05-30 06:58] LABS: BUN Creatinine Ratio 17.5 (10-20); Calcium 8.8 mg/dl (8.6-10.3); Magnesium 1.9 mg/dl (1.7-2.4); Potassium 3.5 mmol/L (3.5-5.1)
[2024-05-30 07:49] VITALS: RESP 16
[2024-05-30] MEDS: HYDROmorphone INJ 1 MG/ML SYRINGE IV PRN (07:54)
--- NOTE | 2024-05-30 07:58 | Hospitalist Progress Note ---
Date of Service May 30, 2024 Assessment & Plan (1) Lumbosacral spondylosis with radiculopathy: Plan: s/p #1 revision decompression with bilateral medial facetectomies and foraminotomies L5-S1. #2 posterior spinal fusion L5-S1. #3 placement posterior instrumentation L5-S1. #4 interbody fusion L5-S1. #5 placement of Spira 11 x 26 mm x 2 at L5-S1. #6 placement locally harvested morselized autograft in the posterior gutters. #7 placement infuse collagen sponge, with Koros in the posterior lateral gutters and os design interbody space. #8 application of versa wrap over the exposed dura with Dr Francois on 05/28. EBL 150cc 05/30 POD#2 WBC elevation suspected 2nd to ongoing steroids. IVF per primary, BP 122/61. Hgb stable 10.4 on continued IVF ordered overnight -suspect acute blood loss anemia from surgery/some aspect of dilution Chemistries stable, stable renal function. Mag 1.9 Last BM 05/30 reported. +BS on exam. No santana w/ surgery or retention reported Primary service ordered IVF/bedrest for possible CSF leak w/ clear HANNAH drainage on 05/29 (however notable suspected 2nd to anesthesia reaction w/ n/v in past reported) --> OOB to chair today, if headache to resume bedrest. Hopefully no issues and can advance activity. Hopefuly dc in AM Pain management,PT/OT/DVT proph per primary service Pepcid for GI proph (2) Hypothyroidism: Plan: Hx Rob's. Per PCP note, TSH slightly high but normal T4 Remains on levothyroxine 88mcg dialy rec repeat TFT in 4 wks following surgery/adjustment pending levels w/ PCP -- she reports she has order to have these repeated in 1 month from prior (3) Chronic pain: Plan: continues on Cymbalta 90mg dialy pain management for above per primary service (4) HTN (hypertension): Plan: hx HTN/tachycardia -- BP 130/78 Continue metoprolol 50mg daily w/ hold parameters Plan Dispo: continued inpatient stay, OOB to chair today/activity per primary service Thank you for allowing hospitalist service to participate in the care of Ms Eric. Will follow up in AM but if no issues can sign off. Please call with any questions/concerns. Admission and Anticipated Discharge Date Admission Date: May 28, 2024 Supervising Physician Co-Signing Physician Notes The patient was not seen by me. The chart was reviewed. Case discussed with ETIENNE Stoner. Agree with assessment and plan Subjective Eval this morning, doing well. Did have some increased pain yesterday but got meds/feeling better. Moved bowels this morning. Not seen by Dr Francois but reports seen by someone who said OOB to chair today but no dc until tomorrow. No CP/SOB, fever/chills, abdominal pain/nausea reported. Will monitor/hopeful dc in AM. Questions/concerns addressed at this time. Physical Exam 2 Physical Exam: General: 68yo female laying in bed, NAD, improved today HEENT head atraumatic, normocephalic, mmm, trachea midline Resp: even/unlabored, no wheezing/rales, on room air CV: RRR, no significant m/r/g, no pitting edema GI: +BS, soft, less distension, nontender MSK/Neuro: dressing c/d/i, scant shadowing, no HANNAH drain. Dorsiflexion/plantar flexion intact, calves nontender, pulses present Psych: AOx3, cooperative with exam Results & Data Results & Data Vital Signs (Past 12 Hours) Vital Signs Temp Pulse Pulse Resp BP Pulse Ox O2 Del Method 05/30/24 07:48 36.8 C 87 16 122/61 96 Room Air 05/29/24 22:47 36.7 C 105 H 18 134/67 97 Room Air Laboratory Results 05/30/24 05:51 05/30/24 05:51 Mag 1.9 PG Care Time/CCT Total # of Minutes Spent Total Time Spent with Patient: Total time spent is greater than 50% in coordination of care (as documented) at patient's floor/unit and/or counseling patient: Coding Level of Care Code 71444 SUB INP/OBS CARE 2/35MIN Diagnoses Lumbosacral spondylosis with radiculopathy M47.27 Hypothyroidism E03.9 Chronic pain G89.29 HTN (hypertension) I10
--- NOTE | 2024-05-30 08:59 | Orthopedic Progress Note ---
Date of Service May 30, 2024 Assessment & Plan (1) Lumbosacral spondylosis with radiculopathy: Plan: Patient is stable postoperative #2 status post L5-S1 decompression and fusion with possible spontaneous spinal fluid leak. We will get her from bed to chair this afternoon for approximately 2 hours. Will see how she does with this. If she does well she may continue going bed to chair throughout the day. If she starts to get a headache she is to be head of bed flat till tomorrow morning. Continue with GI DVT prophylaxis as well as pain control. Will see how she does today and possibly get her home tomorrow if all goes well. Admission and Anticipated Discharge Date Admission Date: May 28, 2024 Subjective Patient is seen bedside in room 305. States that she is not doing well with pain control. She has used pain medication in the past and does not affect her as well as it should. She describes the pain is more of an achiness in her back and legs. She has been had a bed flat since yesterday afternoon as she was thought to have a spontaneous spinal fluid leak. Her drain was DC'd. She is not complaining of any headaches this morning. She denies any other numbness, tingling, or paresthesias. Physical Exam Physical Exam: On exam she is alert and oriented. Her calves are supple and nontender. Her abdomen soft and nontender. She is able to roll her side. Her dressing that was changed yesterday is clean dry and intact. Her HANNAH drain has been DC'd. No fluid wave is noted. She is not leaking through her dressing. Results & Data Vital Signs (Past 12 Hours) Vital Signs Temp Pulse Pulse Resp BP Pulse Ox O2 Del Method 05/30/24 07:48 36.8 C 87 16 122/61 96 Room Air 05/29/24 22:47 36.7 C 105 H 18 134/67 97 Room Air
[2024-05-31] MEDS ORDERED: KETOROLAC TROMETHAMINE 15 MG/ML VIAL IV PRN (07:58)
[2024-05-31] MEDS ORDERED: HYDROmorphone INJ 0.5 MG/0.5 ML SYR IV PRN (08:14)
[2024-05-31] MEDS ORDERED: HYDROmorphone INJ 1 MG/ML SYRINGE IV PRN (08:14)
--- NOTE | 2024-05-31 08:17 | Hospitalist Progress Note ---
Date of Service May 31, 2024 Assessment & Plan (1) Lumbosacral spondylosis with radiculopathy: Plan: s/p #1 revision decompression with bilateral medial facetectomies and foraminotomies L5-S1. #2 posterior spinal fusion L5-S1. #3 placement posterior instrumentation L5-S1. #4 interbody fusion L5-S1. #5 placement of Spira 11 x 26 mm x 2 at L5-S1. #6 placement locally harvested morselized autograft in the posterior gutters. #7 placement infuse collagen sponge, with Koros in the posterior lateral gutters and os design interbody space. #8 application of versa wrap over the exposed dura with Dr Francois on 05/28. EBL 150cc WBC elevation suspected 2nd to ongoing steroids Hgb stable 10.4 on continued IVF ordered overnight -suspect acute blood loss anemia from surgery/some aspect of dilution 05/31 POD#3 Pain control per primary service Appears patient utilized 2 doses Oxycodone 10mg, one dose Dilaudid 1mg when I saw her yesterday morning, but only utilizing the Dilaudid 1mg q3h since that time/no oral options -- Cancelled 1mg dose, 0.[address]. Messaged primary/adjustments per primary service BM 05/30, +BS on exam, continued bowel regimen/pepcid for GI proph Chemistries stable, BP stable 148/86 with pain control Planning for dc this afternoon per primary service. Hospitalist service will sign off at this time. Please call with any questions/concerns. (2) Hypothyroidism: Plan: Hx Rob's. Per PCP note, TSH slightly high but normal T4 Remains on levothyroxine 88mcg daily but rec having f/u PCP with TFT in 1 month as already ordered by PCP (3) Chronic pain: Plan: Continues on Cymbalta 90mg daily Pain management for above per primary service (4) HTN (hypertension): Plan: hx HTN/tachycardia -- BP 148/86 Continue metoprolol 50mg daily w/ hold parameters Plan Dispo: planning for dc this afternoon per primary service Hospitalist service will sign off at this time. Please call with any questions/concerns. Admission and Anticipated Discharge Date Admission Date: May 28, 2024 Subjective Eval this morning, dressed/sitting up in chair. Moved bowels yesterday, passing gas. Pain much improved, discussed PO over IV. Primary to revisit this afternoon at lunch and planning for dc. No CP/SOB, feeling well/feels ready for dc. Reports has home machine delivered with water system for ongoing pain control/recovery as arranged prior to surgery. Questions/concerns addressed at this time, in room. Physical Exam 2 Physical Exam: General: 68yo female sitting up in chair, dressed, looks much improved HEENT head atraumatic, normocephalic, mmm, trachea midline Resp: even/unlabored, no wheezing/rales, on room air, using incentive spirometer well (continued use encouraged) CV: RRR, no significant m/r/g, no pitting edema GI: +BS, slight distension but soft, nontender MSK/Neuro: dressing c/d/i, LE symptoms stable/improved, no calf tenderness/edema Psych: AOx3, cooperative with exam Results & Data Results & Data Vital Signs (Past 12 Hours) Vital Signs Temp Pulse Pulse Resp BP Pulse Ox O2 Del Method 05/31/24 07:26 36.8 C 86 16 148/86 H 92 Room Air 05/30/24 20:12 36.7 C 87 16 115/72 95 Room Air Laboratory Results 05/30/24 05:51 05/31/24 07:49 Mag 1.8 PG Care Time/CCT Total # of Minutes Spent Total Time Spent with Patient: Total time spent is greater than 50% in coordination of care (as documented) at patient's floor/unit and/or counseling patient: Coding Level of Care Code 38719 SUB INP/OBS CARE 2/35MIN Diagnoses Lumbosacral spondylosis with radiculopathy M47.27 Hypothyroidism E03.9 Chronic pain G89.29 HTN (hypertension) I10
[2024-05-31 08:57] LABS: BUN Creatinine Ratio 16.5 (10-20); Calcium 9.3 mg/dl (8.6-10.3); Creatinine Clr Calc Pharmacy 60.8 ml/min; Magnesium 1.8 mg/dl (1.7-2.4); Potassium 3.6 mmol/L (3.5-5.1)
[2024-05-31] MEDS: traMADol HCL 50 MG TABLET PO PRN (09:20)
--- NOTE | 2024-05-31 12:11 | Discharge Summary ---
Date of Service May 31, 2024 Admission HPI Per Admitting Provider This is a 68-year-old female who presents chronic persistent back and bilateral leg pain after failing course of nonoperative care is here for surgical invention. Principal Diagnosis Lumbosacral spondylosis with radiculopathy Discharge Data Allergies Allergy/AdvReac Type Severity Reaction Status Date / Time Sulfa (Sulfonamide Allergy Unknown Rash Verified 05/28/24 08:15 Antibiotics) Consultations 05/28/24 13:30 Consult Hospitalist Routine Procedures Performed Operation Date: 05/28/24 09:35 Actual Procedures p L5-S1 Decompression and Fusion, Spinal Cord Monitoring - Dinh Francois DO Ordered Studies 05/28/24 09:35 [place] lumbar spine 2-3V Routine Hospital Course (1) Lumbosacral spondylosis with radiculopathy: Patient went lumbar decompression fusion trial as well as taken orthopedic for postoperative. We did progress slowly with physical therapy she did very well however. Marked improvement of her back and leg pain. No headaches. Excellent strength testing. Pain control. Subsidy discharged home. Discharge orders and instructions from the chart for further review. Total Time Total Time Spent Total Time Spent (In Minutes): 20 minutes Discharge Plan Discharge Items Patient Disposition: Home - Self-Care Reason For Visit: Lumbosacral Spondylosis with Radiculopathy Discharge Diagnosis: Lumbar spondylosis with radiculopathy Activity: As commented below Non-emergency contact: Primary Care Provider Call non-emergency contact if: you have any medication questions Follow-up/Referrals: Norm Whitlock DO [Primary Care Provider] - Diet: Regular Addtl Attending Provider Instructions: ACTIVITY RECOMMENDATIONS: SELF CARE INSTRUCTIONS AFTER THORACIC/LUMBAR FUSIONS 1. You may walk to your tolerance. It is good exercise for your legs and back. Expect some back and intermittent leg aches and pains. 2. You may perform "counter-top" level activities (make a sandwich, kendra with a project, etc.). 3. No bending or lifting of more than 10 pounds or back twisting of any nature (roll like a log when turning in bed). 4. You may ride in a car for 20-30 minutes at a time. No driving until after your first visit with your doctor. 5. Frequent changes of position and restricting sitting to 30 minutes at a time will help limit the amount of back spasms and stiffness you may experience. 6. You may discontinue the use of ambulatory aids (cane, crutches, etc.) once your strength and confidence allow. 7. You may consulting hr professional the shower and let water strike your incision when you arrive home at least once daily. Do not take a tub bath, sit in a hot tub or go into a swimming pool until after your first recheck in the office. 8. You may resume previous diet. SPECIAL CARE INSTRUCTIONS: VERY IMPORTANT TO READ AND REVIEW A. Your surgical incision has been closed with a cosmetic suture under the skin that will dissolve in about 6 weeks. In 14 days, you can use a pair of clean scissors and cut the suture that is left outside of the skin at the ends of your incision. 1. The small skin tapes can be removed 7 days after surgery if they have not fallen off by that point. 2. You may keep the wound open to air as much as possible to promote healing after post-op day number 5 unless told otherwise by your doctor. 3. If you think the wound looks like it is becoming infected (redness or worsening drainage) and/or you are experiencing fever, chill or worsening back pain and muscle spasms, contact the office so that we may evaluate you as soon as possible. B. Complications are uncommon, but please contact us if you have any signs or symptoms of: 1. wound infection (fever higher than 102.5 degrees F, redness, separation of wound, drainage, or increasing pain from the incision) 2. blood clots in legs (pain, swelling, redness and warmth in legs) 3. urinary tract infection (fever higher than 102.5 degrees F, burning upon urination or increased frequency of urination) 4. nerve problems (inability to walk on your toes or heels, numbness, loss of bowel or bladder control) 5. any other symptoms that concern you C. Please call the office at if you have any concerns or questions about your operation or recovery. D. No smoking! Smoking drastically decreases the chance of a solid fusion. E. Do not take any anti-inflammatory medications (Indocin, Advil, Motrin, Aspirin, Naprosyn, etc.) as these may inhibit the chance of a solid fusion. Tylenol is okay to take for pain. MANAGING PAIN AFTER SPINAL SURGERY 1. Narcotic medication is intended for short-term use and will be provided for surgical pain. Surgical pain usually lasts for a period of 4-6 weeks. Narcotic medication includes Percocet, Vicodin, Darvocet, Tylenol #3 or Lortab. 2. Longer-term pain is more appropriately treated with non-narcotic medication such as Tylenol ES. 3. Muscle spasm is not appropriately treated with narcotics. Muscle relaxers such as Soma, Flexeril or Skelaxin can be used along with Tylenol ES. 4. Remember that we all live with some "aches and pains". This is not unusual or uncommon after an injury or as we get older. a. Back pain is expected and may include muscle spasms for 4 to 6 weeks after surgery. The pain should gradually improve. If the pain worsens for no apparent reason, please contact the office. b. Intermittent leg pain may also be experienced and should not be concerned about unless it worsens for no apparent reason. If so, please contact the office. 5. We will provide appropriate medication within the normal guidelines of their prescribed use. We will also be very cautious and aware of potential abuse and extended duration of patients' medication needs. a. Pain medications are for your comfort and to assist with sleep and rest so that the tissue can heal. They are not provided in order to return to normal activity and should not be used through the day. To do so or worsening pain at night can result from ongoing tissue damage and development of tolerance to the prescribed medicine. 6. Please allow 2-3 days to process refills. Prescriptions will not be mailed but must be picked up at the office. FOLLOW UP VISIT: Keep your scheduled follow-up appointment. Any questions, please call the office at . Pending Studies at Discharge: No Stand-Alone Forms: My [employer], Smoking Cessation Medications and DC Order Prescriptions: New tramadol 50 mg tablet 50 mg PO Q6H PRN (Reason: pain, moderate) Qty: 30 0RF oxycodone 5 mg tablet 5 mg PO Q6H PRN (Reason: pain) Qty: 30 0RF Continued metoprolol succinate 50 mg tablet extended release 24 hr 50 mg PO QPM Qty: 90 1RF duloxetine 60 mg capsule,delayed release(DR/EC) 60 mg PO QPM raloxifene [Evista] 60 mg tablet 60 mg PO QPM cholecalciferol (vitamin D3) 125 mcg (5,000 unit) tablet 5,000 unit PO QPM Rx Instructions: 2-3 tabs PO daily; calcium carbonate 390 mg calcium (1,000 mg) tablet 390 mg PO QPM loratadine [Claritin] 10 mg tablet 10 mg PO DAILY PRN (Reason: seasonal allergies) duloxetine 30 mg capsule,delayed release(DR/EC) 30 mg PO QPM levothyroxine 88 mcg tablet 88 mcg PO HS albuterol sulfate [Ventolin HFA] 90 mcg/actuation HFA aerosol inhaler 2 puff INHALATION DIRECTED PRN (Reason: Wheezing) Discharge Orders: Discharge Order (Routine); Ordered 05/31/24 Ordered By: Dinh Francois Admission Data Admit Date/Time: 05/28/24 11:09 Attending Provider: Alondra Mullen Admit Provider: Dinh Francois Primary Care Provider: Norm Whitlock Other Providers: Wili Sorto
[2024-05-31 14:19] VITALS: BP 141/84; PULSE 74; TEMP 98.1; O2SAT 95
== END 2024-05-31 14:41 | disposition home or self-care (01) | DRG 402 ==
LOC: ASU 07:31 → 3E 11:09 → SUATTDRO 11:09